=== PATIENT | male | born 1970 | race Hispanic/Latino ===

== ENCOUNTER 2021-04-18 22:21 | Inpatient (IN) | payer OTHER ==
[2021-04-18] MEDS ORDERED: Morphine 4 MG/ML VIAL ONE (23:42)
[2021-04-18] MEDS ORDERED: Famotidine/PF 20 mg/2ml Vial ONE (23:42)
[2021-04-18] MEDS ORDERED: Ondansetron PF 4 MG/2 ML Vial ONE (23:42)
[2021-04-18 23:51] LABS: Actual Bicarbonate (HCO3v) 4 mEq/L (22-28); Base Excess -27.6 mEq/L (-2.0 to +3.0); Calcium, Ionized (venous) 1.37 mmol/L (1.16-1.32); Chloride (VBG) 96 mmol/L (98-106); Hemoglobin (Hb) 15.2 g/dL (13.1-17.2); Puncture Site Other Site; Sodium 136.1 mmol/L (133-146); pH (venous) 6.92 (7.32-7.43)
[2021-04-19 00:10] LABS: ALT (SGPT) 12 U/L (8-55); AST (SGOT) 13 U/L (5-34); Albumin 4.4 g/dL (3.5-5.0); Alkaline Phosphatase 128 U/L (40-110); BUN (Urea Nitrogen) 31 mg/dL (8.4-25.7); Bilirubin, Total 0.2 mg/dL (0.2-1.2); Calc. Creatinine Clearance 0 mL/min (70-130); Chloride 97 mmol/L (98-107); Globulin 3.9 g/dL (2.4-3.5); Glucose 431 mg/dL (70-105); Potassium 4.1 mmol/L (3.5-5.1); Protein, Total 8.3 g/dL (6.0-8.3); Sodium 133 mmol/L (136-145)
[2021-04-19] MEDS ORDERED: Piperacillin/Tazobactam 4.5 GM VIAL ONE (00:13)
[2021-04-19 00:19] LABS: Carbon Dioxide Less than 8 mmol/L (22-29)
[2021-04-19] MEDS ORDERED: Magnesium 2 GM/50 ML BAG (IN WATER) ONE (00:34)
[2021-04-19] MEDS ORDERED: INSULIN REGULAR IN 0.9 % NACL 100 UNIT/100 ML BAG ONE (00:35)
[2021-04-19] MEDS ORDERED: NS 0.9% w/ 20 MEQ KCL 1,000 ML ONE ×2 (00:35→03:05)
[2021-04-19 00:37] LABS: Mean Corpuscular HGB CONC 30.8 g/dL (32.0-36.0); Mean Corpuscular Hemoglobin 29.9 pg (27.0-33.0); Mean Corpuscular Volume 96.8 fl (81.2-95.1); Mean Platelet Volume 10.2 fl (7.4-10.4); Platelet Count 448 10x3/uL (150-450); RBC Distribution Width 12.6 % (11.5-14.5); Red Blood Cell (RBC) Count 4.69 10x6/uL (4.32-5.72); White Blood Cell (WBC) Count 20.1 10x3/uL (3.5-10.5)
[2021-04-19 00:46] LABS: Magnesium 2.5 mg/dL (1.6-2.6)
[2021-04-19 00:52] LABS: SARS-CoV-2 NAA Rapid Test DETECTED (NotDetected)
[2021-04-19 00:53] LABS: MDiff Complete? YES
[2021-04-19 00:58] LABS: Band 6 % (5-11); Lymphocytes 19 % (21-51); Monocytes 7 % (0-10); Neutrophil 68 % (42-75)
[2021-04-19] MEDS ORDERED: SODIUM BICARBONATE IV SCH (01:00)
[2021-04-19] MEDS ORDERED: POTASSIUM CHLORIDE IV SCH (01:00)
[2021-04-19] MEDS ORDERED: STERILE WATER IV SCH (01:00)
[2021-04-19] MEDS ORDERED: Sodium Chloride 0.9% 1,000 ML IV PRN ×4 (01:01)
[2021-04-19] MEDS ORDERED: NS 0.9% w/ 20 MEQ KCL 1,000 ML IV PRN ×2 (01:01)
[2021-04-19] MEDS ORDERED: Electrolyte Replacement Protocol IVPB SCH (01:01)
[2021-04-19] MEDS ORDERED: Ondansetron PF 4 MG/2 ML Vial IVP PRN (01:02)
[2021-04-19] MEDS ORDERED: Ondansetron ODT 4 MG TAB PO PRN (01:02)
[2021-04-19] MEDS ORDERED: HYDROcodone/Acetaminophen 5/325 mg Tablet PO PRN (01:02)
[2021-04-19] MEDS ORDERED: INSULIN REGULAR IN 0.9 % NACL 100 UNIT in Premix Bag 1 BAG IVPB SCH (01:15)
[2021-04-19 01:17] LABS: Phosphorus 6.1 mg/dL (2.3-4.7)
[2021-04-19] MEDS ORDERED: Fentanyl 100 MCG/2 ML VIAL ONE (01:45)
[2021-04-19 01:56] LABS: BUN (Urea Nitrogen) 30 mg/dL (8.4-25.7); Calc. Creatinine Clearance 0 mL/min (70-130); Chloride 103 mmol/L (98-107); Glucose 427 mg/dL (70-105); Lipase 27 U/L (8-78); Potassium 4.1 mmol/L (3.5-5.1); Sodium 134 mmol/L (136-145)
[2021-04-19 02:27] LABS: Carbon Dioxide Less than 8 mmol/L (22-29)
[2021-04-19 03:12] LABS: Magnesium 2.7 mg/dL (1.6-2.6)
[2021-04-19 03:14] VITALS: BMI 21.8
[2021-04-19 06:50] LABS: BUN (Urea Nitrogen) 26 mg/dL (8.4-25.7); Calcium 8.5 mg/dL (7.8-10.44); Chloride 112 mmol/L (98-107); Glucose 214 mg/dL (70-105); Potassium 5.1 mmol/L (3.5-5.1)
[2021-04-19 06:55] LABS: Carbon Dioxide 8 mmol/L (22-29)
[2021-04-19] MEDS: D5 1/2 NS w/20 mEq KCL 1,000 ML IV PRN ×2 (07:12→21:21)
[2021-04-19 07:16] LABS: Anion Gap 24 mmol/L (10-20); Calc. Creatinine Clearance 59 mL/min (70-130); Sodium 139 mmol/L (136-145)
[2021-04-19] MEDS: Dextrose 5 %-0.45 % NaCl 1,000 ML IV PRN ×4 (07:39→20:16)
[2021-04-19] MEDS: Piperacillin/Tazobactam 3.375 GM in Sodium Chloride 0.9% 100 ML IVPB SCH ×2 (07:43→16:24)
[2021-04-19] MEDS: Enoxaparin Sodium 40 MG/0.4 ML SYRINGE SC SCH (08:41)
[2021-04-19 09:40] LABS: Hemoglobin 11.8 g/dL (13.5-17.5); Mean Corpuscular HGB CONC 31.9 g/dL (32.0-36.0); Mean Corpuscular Hemoglobin 29.6 pg (27.0-33.0); Mean Platelet Volume 9.7 fl (7.4-10.4); Platelet Count 290 10x3/uL (150-450); RBC Distribution Width 12.7 % (11.5-14.5); Red Blood Cell (RBC) Count 3.98 10x6/uL (4.32-5.72); White Blood Cell (WBC) Count 12.5 10x3/uL (3.5-10.5)
[2021-04-19 09:48] LABS: Anion Gap 19 mmol/L (10-20); BUN (Urea Nitrogen) 22 mg/dL (8.4-25.7); Calc. Creatinine Clearance 65 mL/min (70-130); Calcium 8.4 mg/dL (7.8-10.44); Carbon Dioxide 11 mmol/L (22-29); Chloride 113 mmol/L (98-107); Glucose 154 mg/dL (70-105); Potassium 4.6 mmol/L (3.5-5.1); Sodium 138 mmol/L (136-145)
[2021-04-19 10:11] LABS: MDiff Complete? YES
[2021-04-19 10:16] LABS: Band 3 % (5-11); Lymphocytes 11 % (21-51); Monocytes 23 % (0-10); Neutrophil 62 % (42-75); Reactive Lymphocytes 1 % (0-10)
[2021-04-19 10:17] LABS: Platelet Morphology Comment Appears Adequate
[2021-04-19 10:18] LABS: RBC Morphology Normal
[2021-04-19 12:38] LABS: Hemoglobin A1c 10.4 % (4.0-6.0)
[2021-04-19] MEDS: Senokot S 8.6-50 MG TAB PO SCH (20:16)
[2021-04-19] MEDS: Acetaminophen 325 MG TAB PO PRN (20:16)
[2021-04-19] MEDS: methylPREDNISolone 4 mg Tablet PO SCH (20:19)
[2021-04-19 21:42] LABS: Bilirubin Neg (Negative); Blood, Urine 25 (Negative); Clarity Cloudy (Clear); Glucose, Urine (Dipstick) >=1000 mg/dL (Negative); Ketone, Urine 50 mg/dL (Negative); Leukocyte Negative (Negative); Nitrite Negative (Negative); Protein, Urine (Dipstick) 15 mg/dl (Neg-Trace); Specific Gravity, Urine 1.015 (1.002-1.036); Urobilinogen Normal mg/dL (Less than 2)
[2021-04-19 21:44] LABS: Urine Culture Reflex No No
[2021-04-19 21:57] LABS: Bacteria/HPF 2+ HPF (None Seen); Squamous Epithelial 0-3 HPF (0-3); WBC/HPF 0-3 HPF (0-3)
[2021-04-20] MEDS: methylPREDNISolone 4 mg Tablet PO SCH ×4 (00:36→20:04)
[2021-04-20] MEDS: Piperacillin/Tazobactam 3.375 GM in Sodium Chloride 0.9% 100 ML IVPB SCH ×3 (00:37→15:25)
[2021-04-20] MEDS: D5 1/2 NS w/20 mEq KCL 1,000 ML IV PRN ×3 (01:33→08:57)
[2021-04-20 04:24] LABS: #Monocytes 0.9 10x3/uL (0.0-1.1); #Neutrophils 4.9 10x3/uL (1.5-8.4); %Basophils 0.3 % (0.0-2.0); %Eosinophils 0.2 % (0.0-6.0); %Neutrophils 74.4 % (40.0-75.0); Hemoglobin 10.6 g/dL (13.5-17.5); Mean Corpuscular HGB CONC 33.7 g/dL (32.0-36.0); Mean Corpuscular Hemoglobin 30.2 pg (27.0-33.0); Mean Corpuscular Volume 89.7 fl (81.2-95.1); Mean Platelet Volume 9.4 fl (7.4-10.4); Platelet Count 243 10x3/uL (150-450); RBC Distribution Width 12.9 % (11.5-14.5); Red Blood Cell (RBC) Count 3.51 10x6/uL (4.32-5.72); White Blood Cell (WBC) Count 6.6 10x3/uL (3.5-10.5)
[2021-04-20 04:30] LABS: Anion Gap 12 mmol/L (10-20); BUN (Urea Nitrogen) 10 mg/dL (8.4-25.7); Calc. Creatinine Clearance 96 mL/min (70-130); Calcium 7.9 mg/dL (7.8-10.44); Carbon Dioxide 18 mmol/L (22-29); Chloride 110 mmol/L (98-107); Glucose 210 mg/dL (70-105); Magnesium 1.9 mg/dL (1.6-2.6); Potassium 3.5 mmol/L (3.5-5.1); Sodium 136 mmol/L (136-145)
[2021-04-20 04:35] LABS: Phosphorus 1.8 mg/dL (2.3-4.7)
[2021-04-20 04:42] LABS: Actual Bicarbonate (HCO3v) 19 mEq/L (22-28); Base Excess -6.1 mEq/L (-2.0 to +3.0); Calcium, Ionized (venous) 1.18 mmol/L (1.16-1.32); Chloride (VBG) 105 mmol/L (98-106); Hemoglobin (Hb) 11.4 g/dL (13.1-17.2); Potassium (VBG) 3.62 mmol/L (3.70-5.30); Puncture Site Other Site; RapidComm Collect By LAB; Sodium 135.3 mmol/L (133-146); pH (venous) 7.34 (7.32-7.43)
[2021-04-20] MEDS ORDERED: Potassium Chloride 20 MEQ TAB PO SCH (04:45)
[2021-04-20] MEDS ORDERED: Magnesium 2 GM/50 ML 2 GM in Premix Bag 1 BAG IVPB SCH (04:45)
[2021-04-20] MEDS: Potassium Chloride 20 MEQ in Premix Bag 1 BAG IVPB SCH ×2 (05:14→07:26)
[2021-04-20] MEDS: Acetaminophen 325 MG TAB PO PRN ×3 (05:20→17:04)
[2021-04-20] MEDS ORDERED: Sodium Phosphate 15 MMOL in Sodium Chloride 0.9% 250 ML 250 ML IVPB SCH (05:30)
[2021-04-20] MEDS: Polyethylene Glycol 3350 17 GM Packet PO SCH (08:57)
[2021-04-20] MEDS: Senokot S 8.6-50 MG TAB PO SCH ×2 (08:58→20:04)
[2021-04-20] MEDS: Enoxaparin Sodium 40 MG/0.4 ML SYRINGE SC SCH (08:58)
[2021-04-20] MEDS ORDERED: FLU VACC QS2021-22(6MOS UP)/PF 60 MCG/0.5 ML SYRINGE IM ONE (09:00)
[2021-04-20] MEDS ORDERED: Dextrose 50% Abboject 50 ML SYRINGE SLOW IVP PRN (10:57)
[2021-04-20] MEDS ORDERED: HumaLOG 300 UNITS/3 ML VIAL SC PRN (10:57)
[2021-04-20] MEDS ORDERED: Dextrose 5% in Water 1,000 ML IV PRN (10:57)
[2021-04-20 11:25] LABS: Lactic Acid 1.1 mmol/L (0.5-2.2)
[2021-04-20] MEDS ORDERED: Lantus 1000 UNITS/10 ML VIAL SC SCH (12:00)
[2021-04-20 13:04] LABS: Hemoglobin A1c 10.2 % (4.0-6.0)
[2021-04-20] MEDS: PHOS-NAK 1 PKT PACK PO SCH ×2 (15:25→20:04)
[2021-04-20] MEDS: HumaLOG 300 UNITS/3 ML VIAL SC PRN (15:52)
[2021-04-21] MEDS: Piperacillin/Tazobactam 3.375 GM in Sodium Chloride 0.9% 100 ML IVPB SCH ×3 (00:31→17:08)
[2021-04-21] MEDS: Acetaminophen 325 MG TAB PO PRN ×2 (04:24→17:08)
[2021-04-21 04:55] LABS: Hemoglobin 11.3 g/dL (13.5-17.5); Mean Corpuscular HGB CONC 33.4 g/dL (32.0-36.0); Mean Corpuscular Hemoglobin 29.5 pg (27.0-33.0); Mean Corpuscular Volume 88.3 fl (81.2-95.1); Mean Platelet Volume 9.4 fl (7.4-10.4); Platelet Count 271 10x3/uL (150-450); RBC Distribution Width 12.6 % (11.5-14.5); Red Blood Cell (RBC) Count 3.83 10x6/uL (4.32-5.72); White Blood Cell (WBC) Count 4.4 10x3/uL (3.5-10.5)
[2021-04-21 05:10] LABS: Anion Gap 13 mmol/L (10-20); BUN (Urea Nitrogen) 9 mg/dL (8.4-25.7); Calc. Creatinine Clearance 124 mL/min (70-130); Carbon Dioxide 24 mmol/L (22-29); Chloride 106 mmol/L (98-107); Glucose 123 mg/dL (70-105); Potassium 3.7 mmol/L (3.5-5.1); Sodium 139 mmol/L (136-145)
[2021-04-21] MEDS ORDERED: Magnesium 2 GM/50 ML 2 GM in Premix Bag 1 BAG IVPB SCH (05:15)
[2021-04-21 07:04] LABS: Manual Diff?? YES
[2021-04-21 07:05] LABS: MDiff Complete? YES
[2021-04-21 07:18] LABS: Band 3 % (5-11); Lymphocytes 22 % (21-51); Monocytes 13 % (0-10); Neutrophil 61 % (42-75); Reactive Lymphocytes 1 % (0-10)
[2021-04-21 07:19] LABS: Platelet Morphology Comment Appears Adequate
[2021-04-21] MEDS: Enoxaparin Sodium 40 MG/0.4 ML SYRINGE SC SCH (08:45)
[2021-04-21] MEDS: PHOS-NAK 1 PKT PACK PO SCH ×3 (08:47→20:35)
[2021-04-21] MEDS: methylPREDNISolone 4 mg Tablet PO SCH ×3 (08:47→17:08)
[2021-04-21] MEDS ORDERED: Lantus 1000 UNITS/10 ML VIAL SC SCH ×2 (09:00)
[2021-04-21] MEDS ORDERED: Empagliflozin 25 MG TAB PO SCH (09:00)
[2021-04-21] MEDS ORDERED: Pioglitazone HCl 45 MG TAB PO SCH (09:00)
[2021-04-21] MEDS ORDERED: metFORMIN 500 MG TAB PO SCH ×2 (09:15→21:00)
[2021-04-21] MEDS: Senokot S 8.6-50 MG TAB PO SCH ×2 (10:44→20:35)
[2021-04-21] MEDS: Polyethylene Glycol 3350 17 GM Packet PO SCH (10:44)
[2021-04-21] MEDS: HumaLOG 300 UNITS/3 ML VIAL SC PRN (11:33)
[2021-04-21] MEDS: Lantus 1000 UNITS/10 ML VIAL SC SCH (22:00)
[2021-04-22] MEDS: Piperacillin/Tazobactam 3.375 GM in Sodium Chloride 0.9% 100 ML IVPB SCH ×3 (01:45→15:04)
[2021-04-22 04:03] LABS: Mean Corpuscular HGB CONC 34.1 g/dL (32.0-36.0); Mean Corpuscular Hemoglobin 30.2 pg (27.0-33.0); Mean Corpuscular Volume 88.4 fl (81.2-95.1); Mean Platelet Volume 9.2 fl (7.4-10.4); Platelet Count 298 10x3/uL (150-450); RBC Distribution Width 12.6 % (11.5-14.5); Red Blood Cell (RBC) Count 3.98 10x6/uL (4.32-5.72); White Blood Cell (WBC) Count 4.5 10x3/uL (3.5-10.5)
[2021-04-22 04:06] LABS: Phosphorus 3.5 mg/dL (2.3-4.7)
[2021-04-22 04:11] LABS: Anion Gap 13 mmol/L (10-20); BUN (Urea Nitrogen) 8 mg/dL (8.4-25.7); Calc. Creatinine Clearance 119 mL/min (70-130); Calcium 8.2 mg/dL (7.8-10.44); Carbon Dioxide 28 mmol/L (22-29); Chloride 104 mmol/L (98-107); Glucose 65 mg/dL (70-105); Magnesium 2.1 mg/dL (1.6-2.6); Potassium 3.4 mmol/L (3.5-5.1); Sodium 142 mmol/L (136-145)
[2021-04-22] MEDS ORDERED: Potassium Chloride 20 MEQ TAB PO SCH ×2 (04:15→07:30)
[2021-04-22 04:26] LABS: MDiff Complete? YES
[2021-04-22 04:32] LABS: Lymphocytes 30 % (21-51); Monocytes 20 % (0-10); Neutrophil 50 % (42-75)
[2021-04-22 04:33] LABS: Platelet Morphology Comment Appears Adequate; RBC Morphology Normal
[2021-04-22] MEDS: Acetaminophen 325 MG TAB PO PRN ×3 (06:30→21:08)
[2021-04-22] MEDS: Polyethylene Glycol 3350 17 GM Packet PO SCH (08:56)
[2021-04-22] MEDS: Enoxaparin Sodium 40 MG/0.4 ML SYRINGE SC SCH (08:56)
[2021-04-22] MEDS: PHOS-NAK 1 PKT PACK PO SCH (08:56)
[2021-04-22] MEDS: methylPREDNISolone 4 mg Tablet PO SCH ×2 (08:56→17:47)
[2021-04-22] MEDS ORDERED: Lantus 1000 UNITS/10 ML VIAL SC SCH (09:00)
[2021-04-22] MEDS: Empagliflozin 25 MG TAB PO SCH (09:12)
[2021-04-22] MEDS: Senokot S 8.6-50 MG TAB PO SCH ×2 (09:13→21:09)
[2021-04-22] MEDS: Pioglitazone HCl 45 MG TAB PO SCH (09:13)
[2021-04-22] MEDS: HumaLOG 300 UNITS/3 ML VIAL SC PRN ×2 (12:18→18:01)
[2021-04-22] MEDS: metFORMIN 500 MG TAB PO SCH (21:08)
[2021-04-22] MEDS: Lantus 1000 UNITS/10 ML VIAL SC SCH (21:10)
[2021-04-23] MEDS: Piperacillin/Tazobactam 3.375 GM in Sodium Chloride 0.9% 100 ML IVPB SCH ×2 (01:43→07:56)
[2021-04-23] MEDS: Acetaminophen 325 MG TAB PO PRN (05:27)
[2021-04-23 06:22] LABS: Anion Gap 12 mmol/L (10-20); BUN (Urea Nitrogen) 11 mg/dL (8.4-25.7); Calc. Creatinine Clearance 116 mL/min (70-130); Calcium 8.4 mg/dL (7.8-10.44); Carbon Dioxide 28 mmol/L (22-29); Chloride 105 mmol/L (98-107); Glucose 125 mg/dL (70-105); Potassium 3.8 mmol/L (3.5-5.1); Sodium 141 mmol/L (136-145)
[2021-04-23] MEDS: metFORMIN 500 MG TAB PO SCH (07:55)
[2021-04-23] MEDS: Polyethylene Glycol 3350 17 GM Packet PO SCH ×2 (07:55→08:03)
[2021-04-23] MEDS: Senokot S 8.6-50 MG TAB PO SCH (07:55)
[2021-04-23] MEDS: Empagliflozin 25 MG TAB PO SCH (07:55)
[2021-04-23] MEDS: Enoxaparin Sodium 40 MG/0.4 ML SYRINGE SC SCH (07:55)
[2021-04-23] MEDS: Pioglitazone HCl 45 MG TAB PO SCH (07:55)
[2021-04-23] MEDS ORDERED: methylPREDNISolone 4 mg Tablet PO SCH (09:00)
[2021-04-23] MEDS: HumaLOG 300 UNITS/3 ML VIAL SC PRN (12:47)
[2021-04-23 13:14] VITALS: BP 111/70; TEMP 98.7
== END 2021-04-23 13:09 | disposition home or self-care (01) | DRG 637 ==
LOC: CSHERS 22:21 → CSHIMCU 04-19 02:10 → CSHTELE 04-21 13:19
PROVIDERS: ADMIT Internal Medicine; ATTEND Family Medicine
PROC: 8E0ZXY6 Isolation (ICD-10-PCS; principal; 2021-04-19)
DX: E11.10 Type 2 diabetes mellitus with ketoacidosis without coma (principal); U07.1 COVID-19; N17.9 Acute kidney failure, unspecified; K59.00 Constipation, unspecified; N21.1 Calculus in urethra; Z98.890 Other specified postprocedural states; Z79.4 Long term (current) use of insulin
CPT/HCPCS: 0240U; 36415; 36416; 71045; 74176; 80048; 80053; 81001; 82010; 82805; 83036; 83605; 83690; 83735; 83930; 83935; 84100; 84484; 85025; 87040; 87086; 93005; 96365; 96367; 96375; A4217; J1650; J1815; J2270; J2405; J2543; J3010; J3475; J3480; J3490; J7042; J7050; J7509; S0028

== ENCOUNTER 2023-01-06 05:28 | Inpatient (IN) | payer SELFPAY ==
[2023-01-06] MEDS ORDERED: Ondansetron PF 4 MG/2 ML Vial ONE (06:07)
[2023-01-06] MEDS ORDERED: Ketorolac Tromethamine 30 MG/ML VIAL ONE (06:27)
[2023-01-06 06:45] LABS: BUN (Urea Nitrogen) 11 mg/dL (8.4-25.7); Calc. Creatinine Clearance 0 mL/min (70-130); Chloride 104 mmol/L (98-107); Potassium 4.1 mmol/L (3.5-5.1); Sodium 136 mmol/L (136-145)
[2023-01-06 06:46] LABS: ALT (SGPT) 12 U/L (8-55); AST (SGOT) 10 U/L (5-34); Alkaline Phosphatase 111 U/L (40-110); Bilirubin, Total 0.4 mg/dL (0.2-1.2); Calcium 9.5 mg/dL (7.8-10.44); Estimated GFR 51; Glucose 345 mg/dL (70-105); Lipase 18 U/L (8-78)
[2023-01-06 06:47] LABS: #Basophils 0.1 10x3/uL (0.0-0.2); #Monocytes 0.7 10x3/uL (0.0-1.1); #Neutrophils 6.3 10x3/uL (1.5-8.4); %Basophils 0.8 % (0.0-2.0); %Lymphocytes 20.5 % (18.0-47.0); %Monocytes 7.2 % (0.0-10.0); %Neutrophils 68.9 % (40.0-75.0); Hematocrit 48.3 % (38.8-50.0); Hemoglobin 16.1 g/dL (13.5-17.5); Mean Corpuscular HGB CONC 33.3 g/dL (32.0-36.0); Mean Corpuscular Hemoglobin 30.5 pg (27.0-33.0); Mean Corpuscular Volume 91.5 fl (81.2-95.1); Mean Platelet Volume 10.1 fl (7.4-10.4); Platelet Count 252 10x3/uL (150-450); Red Blood Cell (RBC) Count 5.28 10x6/uL (4.32-5.72); White Blood Cell (WBC) Count 9.1 10x3/uL (3.5-10.5)
[2023-01-06] MEDS ORDERED: Morphine 4 MG/ML VIAL ONE ×2 (06:49→07:38)
[2023-01-06 06:50] LABS: Carbon Dioxide Less than 8 mmol/L (22-29)
[2023-01-06 06:51] LABS: Troponin I Less than 0.010 ng/mL (< 0.028)
[2023-01-06 07:30] LABS: SARS-CoV-2 NAA Rapid Test Not Detected (NotDetected)
[2023-01-06 07:37] LABS: Actual Bicarbonate (HCO3a) 3.7 mEq/L (22-28); Base Excess (BEa) -25.1 mEq/L (-2.0 to +3.0); CO2 Tension 14.4 mmHg (35.0-45.0); Calcium, Ionized (arterial) 1.31 mmol/L (1.12-1.30); Carboxyhemoglobin (COHb) 0.5 gm% (0.0-3.0); Hematocrit-ABG 46 % (42.0-52.0); Hemoglobin (Hb) 15.7 g/dL (14.0-18.0); O2 Tension (PaO2), arterial 146.1 mmHg (80.0-100.0); Potassium - ABG Lab 3.65 mmol/L (3.70-5.30); Puncture Site LRA; pH, Arterial 7.033 (7.35-7.45)
[2023-01-06] MEDS ORDERED: INSULIN REGULAR IN 0.9 % NACL 100 UNITS/100 ML BAG ONE (08:30)
[2023-01-06] MEDS ORDERED: HYDROmorphone 0.5 MG/0.5 ML SYRINGE ONE (09:15)
[2023-01-06] MEDS ORDERED: Dextrose 50% Abboject 50 ML SYRINGE SLOW IVP PRN (10:26)
[2023-01-06] MEDS ORDERED: NS 0.9% w/ 20 MEQ KCL 1,000 ML IV PRN (10:26)
[2023-01-06] MEDS ORDERED: Sodium Chloride 0.9% 1,000 ML IV PRN ×4 (10:26)
[2023-01-06] MEDS ORDERED: Dextrose 5 %-0.45 % NaCl 1,000 ML IV PRN (10:26)
[2023-01-06] MEDS ORDERED: Electrolyte Replacement Protocol 1 EACH IVPB PRN (10:26)
[2023-01-06] MEDS ORDERED: Ondansetron PF 4 MG/2 ML Vial IVP PRN (10:26)
[2023-01-06] MEDS ORDERED: Acetaminophen 325 MG TAB PO PRN (10:26)
[2023-01-06] MEDS ORDERED: Acetaminophen 650 MG Suppository PR PRN (10:26)
[2023-01-06] MEDS ORDERED: cefTRIAXone (ROCEPHIN) 1 GM VIAL ONE (10:35)
[2023-01-06 10:58] LABS: Bilirubin Neg (Negative); Blood, Urine 25 (Negative); Glucose, Urine (Dipstick) >=1000 mg/dL (Negative); Ketone, Urine 150 mg/dL (Negative); Leukocyte Negative (Negative); Nitrite Negative (Negative); Protein, Urine (Dipstick) 100 mg/dl (Neg-Trace); Specific Gravity, Urine 1.025 (1.005-1.030); Urobilinogen Normal mg/dL (Less than 2)
[2023-01-06] MEDS ORDERED: Sodium Bicarb 50 MEQ/50 ML VIAL IVP SCH (11:00)
[2023-01-06 11:08] LABS: Bacteria/HPF None Seen HPF (None Seen); CAUTI Indications for Culture Pelvic or flank pain; Clarity Clear (Clear); RBC/HPF None Seen HPF (0-3); Squamous Epithelial 0-3 HPF (0-3); WBC/HPF None Seen HPF (0-3)
[2023-01-06 11:09] LABS: Urine Culture Reflex No No
[2023-01-06 11:21] LABS: BUN (Urea Nitrogen) 12 mg/dL (8.4-25.7); Calc. Creatinine Clearance 0 mL/min (70-130); Calcium 8.7 mg/dL (7.8-10.44); Carbon Dioxide Less than 8 mmol/L (22-29); Chloride 111 mmol/L (98-107); Estimated GFR 54; Glucose 382 mg/dL (70-105); Magnesium 2.1 mg/dL (1.6-2.6); Phosphorus 3.7 mg/dL (2.3-4.7); Potassium 3.7 mmol/L (3.5-5.1); Sodium 139 mmol/L (136-145)
[2023-01-06] MEDS: NS 0.9% w/ 20 MEQ KCL 1,000 ML IV PRN ×2 (11:28→13:21)
[2023-01-06 11:34] LABS: Bilirubin Neg (Negative); Blood, Urine 25 (Negative); Clarity Clear (Clear); Glucose, Urine (Dipstick) >=1000 mg/dL (Negative); Ketone, Urine 150 mg/dL (Negative); Leukocyte Negative (Negative); Nitrite Negative (Negative); Protein, Urine (Dipstick) 30 mg/dl (Neg-Trace); Urobilinogen Normal mg/dL (Less than 2)
[2023-01-06 11:37] VITALS: BMI 22.3
[2023-01-06 11:42] LABS: Amphetamine Not Detected (NotDetected); Barbiturates Screen Not Detected (NotDetected); Benzodiazepine Screen Not Detected (NotDetected); Cocaine Metabolite Screen Not Detected (NotDetected); Methadone Not Detected (NotDetected); Methamphetamine Not Detected (NotDetected); Opiate Screen Detected (NotDetected); Oxycodone Screen Not Detected (NotDetected); Phencyclidine (PCP) Not Detected (NotDetected); THC/Cannabinoid Screen Not Detected (NotDetected); Tricyclic Screen Not Detected (NotDetected)
[2023-01-06 11:47] LABS: Bacteria/HPF None Seen HPF (None Seen); RBC/HPF None Seen HPF (0-3); Squamous Epithelial 0-3 HPF (0-3); WBC/HPF None Seen HPF (0-3)
[2023-01-06] MEDS ORDERED: Magnesium 2 GM/50 ML(in water) 2 GM in Premix Bag 1 BAG IVPB SCH (12:00)
[2023-01-06] MEDS ORDERED: diphenhydrAMINE 50 MG/ML VIAL IVP PRN (12:18)
[2023-01-06] MEDS ORDERED: Naloxone HCl 0.4 mg/ml Vial IVP PRN (12:18)
[2023-01-06] MEDS ORDERED: Artificial Tear Sol 15 ML BOT EA EYE PRN (12:18)
[2023-01-06] MEDS ORDERED: Morphine 4 MG/ML VIAL SLOW IVP PRN (12:18)
[2023-01-06] MEDS ORDERED: Sodium Chloride 0.65% Nasal 44 ML BOT EA NARE PRN (12:18)
[2023-01-06] MEDS ORDERED: Loratadine 10 MG TAB PO PRN (12:18)
[2023-01-06] MEDS ORDERED: Communication Order-Pharmacy FS ONE (12:18)
[2023-01-06] MEDS ORDERED: Moisturizing Cream (Eucerin) 113 GM JAR TOP PRN (12:18)
[2023-01-06] MEDS ORDERED: Morphine 2 MG/ML VIAL SLOW IVP PRN (12:30)
[2023-01-06] MEDS ORDERED: guaiFENesin 100 MG/5 ML UDCUP PO PRN (12:34)
[2023-01-06] MEDS: D5 1/2 NS w/20 mEq KCL 1,000 ML IV PRN ×3 (15:23→23:12)
[2023-01-06 16:11] LABS: BUN (Urea Nitrogen) 12 mg/dL (8.4-25.7); Calc. Creatinine Clearance 62 mL/min (70-130); Calcium 8.5 mg/dL (7.8-10.44); Chloride 117 mmol/L (98-107); Estimated GFR 59; Glucose 241 mg/dL (70-105); Potassium 4.4 mmol/L (3.5-5.1); Sodium 141 mmol/L (136-145)
[2023-01-06] MEDS: INSULIN REGULAR IN 0.9 % NACL 100 UNITS in Premix Bag 1 BAG IVPB SCH (16:13)
[2023-01-06 16:15] LABS: Carbon Dioxide Less than 8 mmol/L (22-29)
[2023-01-06 16:27] LABS: Free T4 (Free Thyroxine) 0.83 ng/dL (0.70-1.48)
[2023-01-06] MEDS: Famotidine/PF 20 mg/2ml Vial SLOW IVP SCH (19:32)
[2023-01-06 19:44] LABS: Anion Gap 14 mmol/L (10-20); BUN (Urea Nitrogen) 11 mg/dL (8.4-25.7); Calc. Creatinine Clearance 69 mL/min (70-130); Calcium 8.2 mg/dL (7.8-10.44); Carbon Dioxide 12 mmol/L (22-29); Chloride 114 mmol/L (98-107); Estimated GFR 68; Glucose 211 mg/dL (70-105); Potassium 3.8 mmol/L (3.5-5.1); Sodium 136 mmol/L (136-145)
[2023-01-07] MEDS: D5 1/2 NS w/20 mEq KCL 1,000 ML IV PRN ×2 (03:36→08:26)
[2023-01-07] MEDS: INSULIN REGULAR IN 0.9 % NACL 100 UNITS in Premix Bag 1 BAG IVPB SCH (03:37)
[2023-01-07 04:20] LABS: #Monocytes 0.9 10x3/uL (0.0-1.1); #Neutrophils 4.2 10x3/uL (1.5-8.4); %Basophils 0.2 % (0.0-2.0); %Eosinophils 0.2 % (0.0-6.0); %Lymphocytes 17.8 % (18.0-47.0); %Monocytes 13.8 % (0.0-10.0); %Neutrophils 67.4 % (40.0-75.0); Hematocrit 36.5 % (38.8-50.0); Hemoglobin 12.6 g/dL (13.5-17.5); Mean Corpuscular HGB CONC 34.5 g/dL (32.0-36.0); Mean Corpuscular Hemoglobin 30.5 pg (27.0-33.0); Mean Corpuscular Volume 88.4 fl (81.2-95.1); Mean Platelet Volume 10.1 fl (7.4-10.4); Platelet Count 164 10x3/uL (150-450); Red Blood Cell (RBC) Count 4.13 10x6/uL (4.32-5.72); White Blood Cell (WBC) Count 6.2 10x3/uL (3.5-10.5)
[2023-01-07 04:21] LABS: ALT (SGPT) 9 U/L (8-55); AST (SGOT) 17 U/L (5-34); Albumin 3.5 g/dL (3.5-5.0); Alkaline Phosphatase 72 U/L (40-110); Anion Gap 10 mmol/L (10-20); BUN (Urea Nitrogen) 9 mg/dL (8.4-25.7); Bilirubin, Total 0.4 mg/dL (0.2-1.2); Calc. Creatinine Clearance 88 mL/min (70-130); Calcium 8.4 mg/dL (7.8-10.44); Carbon Dioxide 15 mmol/L (22-29); Chloride 113 mmol/L (98-107); Estimated GFR 91; Globulin 2.1 g/dL (2.4-3.5); Glucose 150 mg/dL (70-105); Potassium 3.6 mmol/L (3.5-5.1); Protein, Total 5.6 g/dL (6.0-8.3); Sodium 134 mmol/L (136-145)
[2023-01-07] MEDS: Famotidine/PF 20 mg/2ml Vial SLOW IVP SCH (07:44)
[2023-01-07] MEDS ORDERED: Lantus 1000 UNITS/10 ML VIAL SC SCH (10:00)
[2023-01-07] MEDS ORDERED: cefTRIAXone\\ROCEPHIN 1 GM in Sodium Chloride 0.9% 100 ML IVPB SCH (10:30)
[2023-01-07 11:40] VITALS: BP 123/75; TEMP 97.7
[2023-01-07 15:35] LABS: Hemoglobin A1c 12.8 % (4.0-6.0)
[2023-01-08] MEDS ORDERED: Lantus 1000 UNITS/10 ML VIAL SC SCH (09:00)
== END 2023-01-07 15:28 | disposition home or self-care (01) | DRG 639 ==
LOC: CSHERS 05:28 → CSHICU 10:04
PROVIDERS: ADMIT Family Medicine; ATTEND Family Medicine
PROC: 4A033R1 Measurement of Arterial Saturation, Peripheral, Percutaneous Approach (ICD-10-PCS; principal; 2023-01-06)
DX: E11.10 Type 2 diabetes mellitus with ketoacidosis without coma (principal); Z11.52 Encounter for screening for COVID-19; T68.XXXA Hypothermia, initial encounter; I45.10 Unspecified right bundle-branch block; Z79.4 Long term (current) use of insulin; Z83.3 Family history of diabetes mellitus
CPT/HCPCS: 36415; 36416; 36600; 74177; 80053; 80306; 81001; 82010; 82805; 83036; 83605; 83690; 83735; 83880; 83930; 84100; 84145; 84439; 84443; 84481; 84484; 85025; 87040; 87086; 93005; J0696; J1170; J1650; J1815; J1885; J2270; J2405; J3480; S0028

== ENCOUNTER 2025-02-26 08:04 | Inpatient (IN) | payer BC, OTHER, SELFPAY ==
[2025-02-26 09:03] LABS: Hematocrit 48.9 % (38.8-50.0); Hemoglobin 16.6 g/dL (13.5-17.5); Mean Corpuscular Hemoglobin 30.2 pg (27.0-33.0); Mean Corpuscular Volume 88.9 fL (81.2-95.1); Platelet Count 222 10x3/uL (150-450); Red Blood Cell (RBC) Count 5.50 10x6/uL (4.32-5.72); White Blood Cell (WBC) Count 11.40 10x3/uL (3.5-10.5)
[2025-02-26 09:11] LABS: ALT (SGPT) 18 U/L (Less than 45); AST (SGOT) 15 U/L (11-34); Albumin 4.6 g/dL (3.1-4.5); Alkaline Phosphatase 118 U/L (40-110); BUN (Urea Nitrogen) 16 mg/dL (8.4-25.7); Bilirubin, Total 0.2 mg/dL (0.3-1.2); Calc. Creatinine Clearance 0 mL/min (70-130); Calcium 9.3 mg/dL (7.8-10.44); Chloride 102 mmol/L (98-107); Globulin 3.2 g/dL (2.4-3.5); Lipase 21 U/L (8-78); Magnesium 2.3 mg/dL (1.6-2.6); Potassium 4.5 mmol/L (3.5-5.1); Sodium 137 mmol/L (136-145)
[2025-02-26 09:17] LABS: Carbon Dioxide Less than 8 mmol/L (22-29); Glucose 479 mg/dL (70-105)
[2025-02-26 09:44] LABS: MDiff Complete? YES
[2025-02-26 09:45] LABS: Platelet Adequacy Comment Platelets Normal
[2025-02-26] MEDS ORDERED: INSULIN REGULAR IN 0.9 % NACL 100 ML ONE ×2 (09:52→17:50)
[2025-02-26] MEDS ORDERED: Iopamidol 370 76% 100 ML VIAL ONE (10:17)
[2025-02-26] MEDS ORDERED: NS 0.9% w/ 20 MEQ KCL 1,000 ML ONE ×2 (10:31→16:23)
[2025-02-26 10:44] LABS: Actual Bicarbonate (HCO3a) 2.5 mEq/L (22-28); Analyzer IN Cardio CS ER; Base Excess (BEa) -28.6 mEq/L (-2.0 to +3.0); CO2 Tension 12.3 mmHg (35.0-45.0); Calcium, Ionized (arterial) 1.35 mmol/L (1.12-1.30); Hematocrit-ABG 45 % (42.0-52.0); Hemoglobin (Hb) 15.3 g/dL (14.0-18.0); O2 Tension (PaO2), arterial 147.8 mmHg (80.0-100.0); Potassium - ABG Lab 3.59 mmol/L (3.70-5.30); Puncture Site Left Brachial artery; pH, Arterial 6.925 (7.35-7.45)
[2025-02-26 11:37] LABS: Glucose, Urine (Dipstick) >=1000 mg/dL (Negative); Leukocyte Negative (Negative); Protein, Urine (Dipstick) 100 mg/dl (Neg-Trace); Specific Gravity, Urine 1.020 (1.005-1.030)
[2025-02-26 11:45] LABS: Bacteria/HPF 1+ HPF (None Seen); CAUTI Indications for Culture Alt mental st,lethar; RBC/HPF 0-3 HPF (0-3); WBC/HPF 0-3 HPF (0-3)
[2025-02-26 11:46] LABS: Urine Culture Reflex No No
[2025-02-26 15:52] LABS: ALT (SGPT) 14 U/L (Less than 45); AST (SGOT) 13 U/L (11-34); Albumin 3.9 g/dL (3.1-4.5); Alkaline Phosphatase 90 U/L (40-110); BUN (Urea Nitrogen) 16 mg/dL (8.4-25.7); Bilirubin, Total 0.3 mg/dL (0.3-1.2); Calc. Creatinine Clearance 0 mL/min (70-130); Calcium 8.2 mg/dL (7.8-10.44); Chloride 112 mmol/L (98-107); Globulin 2.4 g/dL (2.4-3.5); Glucose 309 mg/dL (70-105); Potassium 4.0 mmol/L (3.5-5.1); Sodium 139 mmol/L (136-145)
[2025-02-26 16:16] LABS: Carbon Dioxide Less than 8 mmol/L (22-29)
[2025-02-26 16:32] LABS: Actual Bicarbonate (HCO3a) 10.4 mEq/L (22-28); Analyzer IN Cardio CS ER; Base Excess (BEa) -14.7 mEq/L (-2.0 to +3.0); CO2 Tension 23.5 mmHg (35.0-45.0); Calcium, Ionized (arterial) 1.30 mmol/L (1.12-1.30); Hematocrit-ABG 41 % (42.0-52.0); Hemoglobin (Hb) 14.1 g/dL (14.0-18.0); O2 Tension (PaO2), arterial 96.1 mmHg (80.0-100.0); Potassium - ABG Lab 3.61 mmol/L (3.70-5.30); Puncture Site Left Brachial artery; pH, Arterial 7.262 (7.35-7.45)
[2025-02-26 16:36] LABS: ALV-art Gradient 24.255 mmHg (0-20)
[2025-02-26] MEDS ORDERED: NS 0.9% w/ 20 MEQ KCL 1,000 ML IV PRN ×2 (18:53)
[2025-02-26] MEDS ORDERED: Ondansetron PF 4 MG/2 ML Vial IVP PRN (18:58)
[2025-02-26] MEDS ORDERED: Electrolyte Replacement Protocol 1 EACH FS SCH (19:00)
[2025-02-26] MEDS ORDERED: Magnesium Sulfate In Water 4 GM in Premix 1 BAG IVPB PRN (19:15)
[2025-02-26 19:24] LABS: Actual Bicarbonate (HCO3v) 13.6 mEq/L (22-28); Analyzer IN Cardio CS ICU; Base Excess -12.1 mEq/L (-2 - +2); Calcium, Ionized (venous) 1.24 mmol/L (1.16-1.32); Chloride (VBG) 114 mmol/L (98-106); Critical Notified By: CP.SDG; Hematocrit-VBG 38 % (42.0-52.0); Hemoglobin (Hb) 12.9 g/dL (13.1-17.2); Potassium (VBG) 3.65 mmol/L (3.70-5.30); Puncture Site Other Site; RapidComm Collect By LAB.YY; Sodium 144 mmol/L (133-146)
[2025-02-26 19:31] VITALS: BMI 19.3
[2025-02-26 19:45] LABS: ALT (SGPT) 10 U/L (Less than 45); AST (SGOT) 15 U/L (11-34); Albumin 3.5 g/dL (3.1-4.5); Alkaline Phosphatase 74 U/L (40-110); Anion Gap 15 mmol/L (10-20); BUN (Urea Nitrogen) 14 mg/dL (8.4-25.7); Bilirubin, Total 0.2 mg/dL (0.3-1.2); Calc. Creatinine Clearance 66 mL/min (70-130); Calcium 8.2 mg/dL (7.8-10.44); Carbon Dioxide 12 mmol/L (22-29); Chloride 117 mmol/L (98-107); Globulin 2.3 g/dL (2.4-3.5); Glucose 167 mg/dL (70-105); Potassium 3.5 mmol/L (3.5-5.1); Sodium 140 mmol/L (136-145)
[2025-02-26] MEDS: D5 1/2 NS w/20 mEq KCL 1,000 ML IV PRN (19:47)
[2025-02-26] MEDS: Sodium Bicarbonate 75 MEQ in Dextrose 5 %-0.45 % NaCl 1,000 ML IV SCH (20:30)
[2025-02-26] MEDS: Mupirocin 1 GM TUBE NASAL DECOLONIZATION NASAL SCH (20:31)
[2025-02-26] MEDS: Azithromycin 500 MG in Sodium Chloride 0.9% 250 ML 250 ML IVPB SCH (20:31)
[2025-02-26] MEDS: cefTRIAXone\\ROCEPHIN 1 GM in Sodium Chloride 0.9% 100 ML IVPB SCH (20:32)
[2025-02-26] MEDS: Vancomycin 1.5 GRAM/300 ML BAG 1.5 GM in Premix 1 BAG IVPB SCH (20:32)
[2025-02-26 20:34] LABS: Magnesium 1.8 mg/dL (1.6-2.6)
[2025-02-26 20:58] LABS: #Basophils Less than 0.03 10x3/uL (0.0-0.2); #Eosinophils Less than 0.03 10x3/uL (0.0-0.5); #Monocytes 1.09 10x3/uL (0.0-1.1); #Neutrophils 3.73 10x3/uL (1.5-8.4); %Basophils 0.3 % (0.0-2.0); %Eosinophils 0.0 % (0.0-6.0); %Lymphocytes 18.1 % (18.0-47.0); %Monocytes 18.1 % (0.0-10.0); %Neutrophils 62.2 % (40.0-75.0); Hematocrit 34.3 % (38.8-50.0); Hemoglobin 12.3 g/dL (13.5-17.5); Mean Corpuscular Hemoglobin 30.0 pg (27.0-33.0); Mean Corpuscular Volume 83.7 fL (81.2-95.1); Platelet Count 178 10x3/uL (150-450); Red Blood Cell (RBC) Count 4.10 10x6/uL (4.32-5.72); White Blood Cell (WBC) Count 6.01 10x3/uL (3.5-10.5)
[2025-02-26] MEDS ORDERED: Famotidine/PF 20 mg/2ml Vial SLOW IVP SCH (21:00)
[2025-02-26] MEDS ORDERED: Famotidine 20 MG TAB PO SCH (21:00)
[2025-02-26] MEDS: Potassium Phosphate 45 MMOL in Sodium Chloride 0.9% 250 ML 250 ML IVPB SCH (21:38)
[2025-02-26] MEDS: Sodium Bicarbonate 150 MEQ, Admixture Fee 1 EACH in Sterile Water 1,000 ML IV SCH (22:42)
[2025-02-26] MEDS: Electrolyte Replacement Protocol 1 EACH IVPB ONE (22:42)
[2025-02-26 23:29] LABS: Anion Gap 11 mmol/L (10-20); BUN (Urea Nitrogen) 12 mg/dL (8.4-25.7); Calc. Creatinine Clearance 81 mL/min (70-130); Calcium 7.8 mg/dL (7.8-10.44); Carbon Dioxide 16 mmol/L (22-29); Chloride 115 mmol/L (98-107); Glucose 227 mg/dL (70-105); Potassium 3.4 mmol/L (3.5-5.1); Sodium 139 mmol/L (136-145)
[2025-02-26] MEDS: FLU (Fluarix Triv) 25-26 (6MOS UP)/PF 45 MCG/0.5 ML Syringe IM ONE (23:48)
[2025-02-27 03:46] LABS: #Basophils Less than 0.03 10x3/uL (0.0-0.2); #Eosinophils Less than 0.03 10x3/uL (0.0-0.5); #Monocytes 0.85 10x3/uL (0.0-1.1); #Neutrophils 2.82 10x3/uL (1.5-8.4); %Basophils 0.4 % (0.0-2.0); %Eosinophils 0.4 % (0.0-6.0); %Lymphocytes 25.7 % (18.0-47.0); %Monocytes 16.8 % (0.0-10.0); %Neutrophils 55.7 % (40.0-75.0); Hematocrit 34.1 % (38.8-50.0); Hemoglobin 12.4 g/dL (13.5-17.5); Mean Corpuscular Hemoglobin 30.2 pg (27.0-33.0); Mean Corpuscular Volume 83.0 fL (81.2-95.1); Platelet Count 152 10x3/uL (150-450); Red Blood Cell (RBC) Count 4.11 10x6/uL (4.32-5.72); White Blood Cell (WBC) Count 5.06 10x3/uL (3.5-10.5)
[2025-02-27 04:31] LABS: Actual Bicarbonate (HCO3v) 20.4 mEq/L (22-28); Analyzer IN Cardio CS ICU; Base Excess -5.5 mEq/L (-2 - +2); Calcium, Ionized (venous) 1.14 mmol/L (1.16-1.32); Chloride (VBG) 111 mmol/L (98-106); Hematocrit-VBG 37 % (42.0-52.0); Hemoglobin (Hb) 12.5 g/dL (13.1-17.2); Potassium (VBG) 2.94 mmol/L (3.70-5.30); Puncture Site Other Site; RapidComm Collect By LAB.YY; Sodium 141 mmol/L (133-146)
[2025-02-27 04:37] LABS: ALT (SGPT) 10 U/L (Less than 45); AST (SGOT) 16 U/L (11-34); Albumin 3.2 g/dL (3.1-4.5); Alkaline Phosphatase 68 U/L (40-110); Anion Gap 10 mmol/L (10-20); BUN (Urea Nitrogen) 9 mg/dL (8.4-25.7); Bilirubin, Total 0.3 mg/dL (0.3-1.2); Calc. Creatinine Clearance 95 mL/min (70-130); Calcium 7.7 mg/dL (7.8-10.44); Carbon Dioxide 18 mmol/L (22-29); Chloride 114 mmol/L (98-107); Globulin 2.3 g/dL (2.4-3.5); Glucose 216 mg/dL (70-105); Magnesium 1.6 mg/dL (1.6-2.6); Potassium 2.9 mmol/L (3.5-5.1); Sodium 139 mmol/L (136-145)
[2025-02-27] MEDS: INSULIN REGULAR IN 0.9 % NACL 100 ML IVPB SCH (05:09)
[2025-02-27] MEDS: Potassium Chloride 20 MEQ in Premix 1 BAG IVPB PRN (05:21)
[2025-02-27] MEDS: Dextrose 50% Abboject 50 ML SYRINGE SLOW IVP PRN (07:15)
[2025-02-27 09:08] LABS: Anion Gap 11 mmol/L (10-20); BUN (Urea Nitrogen) 7 mg/dL (8.4-25.7); Calc. Creatinine Clearance 111 mL/min (70-130); Calcium 7.9 mg/dL (7.8-10.44); Carbon Dioxide 18 mmol/L (22-29); Chloride 113 mmol/L (98-107); Glucose 192 mg/dL (70-105); Magnesium 1.4 mg/dL (1.6-2.6); Potassium 3.3 mmol/L (3.5-5.1); Sodium 139 mmol/L (136-145)
[2025-02-27 09:11] LABS: Actual Bicarbonate (HCO3v) 19.6 mEq/L (22-28); Analyzer IN Cardio CS ICU; Base Excess -6.2 mEq/L (-2 - +2); Calcium, Ionized (venous) 1.13 mmol/L (1.16-1.32); Chloride (VBG) 109 mmol/L (98-106); Hematocrit-VBG 36 % (42.0-52.0); Hemoglobin (Hb) 12.4 g/dL (13.1-17.2); Potassium (VBG) 3.29 mmol/L (3.70-5.30); Puncture Site Other Site; Sodium 138 mmol/L (133-146)
[2025-02-27] MEDS: Enoxaparin 40 MG (0.4 mL) SYRINGE SC SCH (09:25)
[2025-02-27] MEDS: Lantus 1000 UNITS/10 ML VIAL SC SCH (10:25)
[2025-02-27] MEDS: Pantoprazole 40 MG VIAL IVP SCH (10:26)
[2025-02-27] MEDS: valACYclovir 500 MG TAB PO SCH (10:26)
[2025-02-27] MEDS: Magnesium 2 GM/50 ML(in water) 2 GM in Premix 1 BAG IVPB PRN (11:22)
[2025-02-27 16:38] LABS: Anion Gap 13 mmol/L (10-20); BUN (Urea Nitrogen) 7 mg/dL (8.4-25.7); Calc. Creatinine Clearance 106 mL/min (70-130); Calcium 7.7 mg/dL (7.8-10.44); Carbon Dioxide 17 mmol/L (22-29); Chloride 107 mmol/L (98-107); Glucose 297 mg/dL (70-105); Potassium 3.7 mmol/L (3.5-5.1); Sodium 133 mmol/L (136-145)
[2025-02-28 05:22] LABS: #Basophils 0.03 10x3/uL (0.0-0.2); #Eosinophils 0.08 10x3/uL (0.0-0.5); #Monocytes 0.46 10x3/uL (0.0-1.1); #Neutrophils 1.89 10x3/uL (1.5-8.4); %Basophils 0.7 % (0.0-2.0); %Eosinophils 1.9 % (0.0-6.0); %Lymphocytes 40.1 % (18.0-47.0); %Monocytes 11.1 % (0.0-10.0); %Neutrophils 45.5 % (40.0-75.0); Hematocrit 33.8 % (38.8-50.0); Hemoglobin 12.3 g/dL (13.5-17.5); Mean Corpuscular Hemoglobin 29.9 pg (27.0-33.0); Mean Corpuscular Volume 82.0 fL (81.2-95.1); Platelet Count 165 10x3/uL (150-450); Red Blood Cell (RBC) Count 4.12 10x6/uL (4.32-5.72); White Blood Cell (WBC) Count 4.16 10x3/uL (3.5-10.5)
[2025-02-28 06:05] LABS: ALT (SGPT) 10 U/L (Less than 45); AST (SGOT) 19 U/L (11-34); Albumin 3.1 g/dL (3.1-4.5); Alkaline Phosphatase 70 U/L (40-110); Anion Gap 12 mmol/L (10-20); BUN (Urea Nitrogen) 5 mg/dL (8.4-25.7); Bilirubin, Total 0.4 mg/dL (0.3-1.2); Calc. Creatinine Clearance 134 mL/min (70-130); Calcium 8.0 mg/dL (7.8-10.44); Carbon Dioxide 25 mmol/L (22-29); Chloride 107 mmol/L (98-107); Globulin 2.4 g/dL (2.4-3.5); Glucose 147 mg/dL (70-105); Potassium 3.1 mmol/L (3.5-5.1); Sodium 141 mmol/L (136-145)
[2025-02-28 06:34] LABS: Magnesium 1.9 mg/dL (1.6-2.6)
[2025-02-28] MEDS: PHOS-NAK 1 PKT PACK PO PRN (06:48)
[2025-02-28 15:11] LABS: Potassium 3.6 mmol/L (3.5-5.1)
[2025-02-28] MEDS: valACYclovir 500 MG TAB PO SCH (18:39)
[2025-03-01 04:10] LABS: #Basophils Less than 0.03 10x3/uL (0.0-0.2); #Eosinophils 0.08 10x3/uL (0.0-0.5); #Monocytes 0.48 10x3/uL (0.0-1.1); #Neutrophils 2.23 10x3/uL (1.5-8.4); %Basophils 0.5 % (0.0-2.0); %Eosinophils 1.8 % (0.0-6.0); %Lymphocytes 35.2 % (18.0-47.0); %Monocytes 11.0 % (0.0-10.0); %Neutrophils 51.3 % (40.0-75.0); Hematocrit 33.3 % (38.8-50.0); Hemoglobin 12.3 g/dL (13.5-17.5); Mean Corpuscular Hemoglobin 30.5 pg (27.0-33.0); Mean Corpuscular Volume 82.6 fL (81.2-95.1); Platelet Count 142 10x3/uL (150-450); Red Blood Cell (RBC) Count 4.03 10x6/uL (4.32-5.72); White Blood Cell (WBC) Count 4.35 10x3/uL (3.5-10.5)
[2025-03-01 04:31] LABS: Anion Gap 11 mmol/L (10-20); BUN (Urea Nitrogen) 9 mg/dL (8.4-25.7); Calc. Creatinine Clearance 122 mL/min (70-130); Calcium 8.5 mg/dL (7.8-10.44); Carbon Dioxide 28 mmol/L (22-29); Chloride 103 mmol/L (98-107); Glucose 223 mg/dL (70-105); Magnesium 2.0 mg/dL (1.6-2.6); Potassium 3.6 mmol/L (3.5-5.1); Sodium 138 mmol/L (136-145)
[2025-03-01] MEDS: metFORMIN 500 MG TAB PO SCH (09:05)
[2025-03-01] MEDS: Lantus 1000 UNITS/10 ML VIAL SC SCH (09:06)
[2025-03-01] MEDS: Pantoprazole 40 MG DR.TAB PO SCH (09:06)
[2025-03-01] MEDS: Acetaminophen 325 MG TAB PO PRN (22:27)
[2025-03-02 07:35] LABS: #Basophils Less than 0.03 10x3/uL (0.0-0.2); #Eosinophils 0.07 10x3/uL (0.0-0.5); #Monocytes 0.62 10x3/uL (0.0-1.1); #Neutrophils 2.26 10x3/uL (1.5-8.4); %Basophils 0.2 % (0.0-2.0); %Eosinophils 1.5 % (0.0-6.0); %Lymphocytes 34.6 % (18.0-47.0); %Monocytes 13.6 % (0.0-10.0); %Neutrophils 49.4 % (40.0-75.0); Hematocrit 33.7 % (38.8-50.0); Hemoglobin 11.9 g/dL (13.5-17.5); Mean Corpuscular Hemoglobin 30.4 pg (27.0-33.0); Mean Corpuscular Volume 86.0 fL (81.2-95.1); Platelet Count 154 10x3/uL (150-450); Red Blood Cell (RBC) Count 3.92 10x6/uL (4.32-5.72); White Blood Cell (WBC) Count 4.57 10x3/uL (3.5-10.5)
[2025-03-02 08:12] LABS: ALT (SGPT) 8 U/L (Less than 45); AST (SGOT) 18 U/L (11-34); Albumin 3.1 g/dL (3.1-4.5); Alkaline Phosphatase 72 U/L (40-110); Anion Gap 11 mmol/L (10-20); BUN (Urea Nitrogen) 10 mg/dL (8.4-25.7); Bilirubin, Total 0.8 mg/dL (0.3-1.2); Calc. Creatinine Clearance 117 mL/min (70-130); Calcium 8.5 mg/dL (7.8-10.44); Carbon Dioxide 27 mmol/L (22-29); Chloride 101 mmol/L (98-107); Globulin 2.7 g/dL (2.4-3.5); Glucose 225 mg/dL (70-105); Potassium 3.7 mmol/L (3.5-5.1); Sodium 135 mmol/L (136-145)
[2025-03-02] MEDS ORDERED: Glucagon 1 MG/ML KIT IM PRN (12:06)
[2025-03-02] MEDS: Lantus 1000 UNITS/10 ML VIAL SC SCH (20:55)
[2025-03-03 05:11] LABS: #Basophils Less than 0.03 10x3/uL (0.0-0.2); #Eosinophils 0.21 10x3/uL (0.0-0.5); #Monocytes 0.78 10x3/uL (0.0-1.1); #Neutrophils 2.10 10x3/uL (1.5-8.4); %Basophils 0.4 % (0.0-2.0); %Eosinophils 4.2 % (0.0-6.0); %Lymphocytes 37.3 % (18.0-47.0); %Monocytes 15.6 % (0.0-10.0); %Neutrophils 42.1 % (40.0-75.0); Hematocrit 33.3 % (38.8-50.0); Hemoglobin 11.6 g/dL (13.5-17.5); Mean Corpuscular Hemoglobin 30.1 pg (27.0-33.0); Mean Corpuscular Volume 86.5 fL (81.2-95.1); Platelet Count 182 10x3/uL (150-450); Red Blood Cell (RBC) Count 3.85 10x6/uL (4.32-5.72); White Blood Cell (WBC) Count 4.99 10x3/uL (3.5-10.5)
[2025-03-03 05:28] LABS: ALT (SGPT) 10 U/L (Less than 45); AST (SGOT) 19 U/L (11-34); Albumin 3.1 g/dL (3.1-4.5); Alkaline Phosphatase 69 U/L (40-110); Anion Gap 10 mmol/L (10-20); BUN (Urea Nitrogen) 13 mg/dL (8.4-25.7); Bilirubin, Total 0.4 mg/dL (0.3-1.2); Calc. Creatinine Clearance 108 mL/min (70-130); Calcium 8.8 mg/dL (7.8-10.44); Carbon Dioxide 28 mmol/L (22-29); Chloride 102 mmol/L (98-107); Globulin 3.0 g/dL (2.4-3.5); Glucose 232 mg/dL (70-105); Potassium 4.0 mmol/L (3.5-5.1); Sodium 136 mmol/L (136-145)
[2025-03-03] MEDS: Lantus 1000 UNITS/10 ML VIAL SC SCH ×2 (10:07→20:13)
[2025-03-03 15:10] VITALS: BMI 19.3
[2025-03-03] MEDS: Amoxicillin/Potassium Clav 875 MG TAB PO SCH (20:14)
[2025-03-04 05:21] LABS: #Basophils Less than 0.03 10x3/uL (0.0-0.2); #Eosinophils 0.25 10x3/uL (0.0-0.5); #Monocytes 0.71 10x3/uL (0.0-1.1); #Neutrophils 1.95 10x3/uL (1.5-8.4); %Basophils 0.4 % (0.0-2.0); %Eosinophils 5.4 % (0.0-6.0); %Lymphocytes 36.1 % (18.0-47.0); %Monocytes 15.4 % (0.0-10.0); %Neutrophils 42.3 % (40.0-75.0); Hematocrit 34.9 % (38.8-50.0); Hemoglobin 12.0 g/dL (13.5-17.5); Mean Corpuscular Hemoglobin 29.7 pg (27.0-33.0); Mean Corpuscular Volume 86.4 fL (81.2-95.1); Platelet Count 259 10x3/uL (150-450); Red Blood Cell (RBC) Count 4.04 10x6/uL (4.32-5.72); White Blood Cell (WBC) Count 4.62 10x3/uL (3.5-10.5)
[2025-03-04 05:35] LABS: ALT (SGPT) Less than 7 U/L (Less than 45); AST (SGOT) 15 U/L (11-34); Albumin 3.2 g/dL (3.1-4.5); Alkaline Phosphatase 77 U/L (40-110); Anion Gap 12 mmol/L (10-20); BUN (Urea Nitrogen) 15 mg/dL (8.4-25.7); Bilirubin, Total 0.2 mg/dL (0.3-1.2); Calc. Creatinine Clearance 98 mL/min (70-130); Calcium 9.2 mg/dL (7.8-10.44); Carbon Dioxide 27 mmol/L (22-29); Chloride 101 mmol/L (98-107); Globulin 3.3 g/dL (2.4-3.5); Glucose 258 mg/dL (70-105); Potassium 4.2 mmol/L (3.5-5.1); Sodium 136 mmol/L (136-145)
[2025-03-04 11:12] VITALS: BP 138/74; TEMP 98.8
== END 2025-03-04 15:57 | disposition home or self-care (01) | DRG 871 ==
LOC: CSHERS 08:04 → CSHICU 18:42 → CSHTELE 02-28 16:51
PROVIDERS: ADMIT Internal Medicine; ATTEND Internal Medicine
DX: A41.9 Sepsis, unspecified organism (principal); E11.10 Type 2 diabetes mellitus with ketoacidosis without coma; J18.9 Pneumonia, unspecified organism; G93.41 Metabolic encephalopathy; J69.0 Pneumonitis due to inhalation of food and vomit; N17.9 Acute kidney failure, unspecified; B02.9 Zoster without complications; R47.81 Slurred speech; E87.6 Hypokalemia; E83.39 Other disorders of phosphorus metabolism; E83.42 Hypomagnesemia; N43.3 Hydrocele, unspecified
CPT/HCPCS: 36415; 36416; 36600; 70450; 71045; 74177; 76870; 80048; 80053; 81001; 82010; 82805; 83036; 83605; 83690; 83735; 84100; 84145; 84443; 85025; 87040; 87086; 93005; 93976; 96374; 96375; 97139; A4217; J0456; J0696; J1650; J1815; J2270; J2470; J2543; J3373; J3475; J3480; J7042; J7050; J7120; J7999; Q9967